=== PATIENT | male | born 1960 | race Caucasian/White ===

== ENCOUNTER 2018-12-18 22:01 | Observation (INO) ==
--- NOTE | 2018-12-18 22:06 | Emergency Department Note ---
Disposition Clinical Impression: Chest pain Qualifiers: Chest pain type: precordial pain Qualified Code(s): R07.2 - Precordial pain Disposition: Admitted As Inpatient Condition: Good Chest Pain HPI - General Chief Complaint: ED Chest Pain Stated Complaint: Stabbing chest pain (intermittent) onset 1 month Time Seen by Provider: 12/18/18 22:01 Source: patient Mode of arrival: EMS Limitations: no limitations Vital Signs Reviewed: Yes Nursing Notes Reviewed: Yes - History of Present Illness HPI Narrative: Patient has had very short-lived sharp stabbing left-sided chest pain with some associated pressure for the past month off and on. He had tired of it tonight so he came to the emergency department for evaluation by squad. Is not any worsening has been is not any better than it has been he also says the pain has been present for the past 4 years but worse in the last month. He was given baby aspirin and 1 nitroglycerin by the squad and his pain is gone. He denies any shortness of breath nausea vomiting or diaphoresis. Duration: intermittent Pain Location: substernal, left chest Quality: tightness Pain Radiation: none Improves with: nitroglycerin Worsens with: nothing Treatments prior to arrival chest pain: aspirin, nitroglycerin - Related Data Home Medications Medication Instructions Recorded Confirmed Alprazolam [Xanax] 1 mg PO BID 04/17/15 12/18/18 Aspirin 81 mg PO DAILY 04/17/15 12/18/18 Clopidogrel [Plavix] 75 mg PO DAILY 04/17/15 12/18/18 Metoprolol [Lopressor] 75 mg PO BID 04/17/15 12/18/18 Nitroglycerin [Nitrostat] 1 tab PO PRN PRN 06/13/17 12/18/18 ALPRAZolam [Xanax 1 MG Tablet] 1 mg PO BID 12/18/18 12/18/18 DULoxetine [Cymbalta] 30 mg PO DAILY 12/18/18 12/18/18 Diclofenac Sodium/Capsaicin 1 each TP TID 12/18/18 12/18/18 [Diclopak Kit] Fluconazole [Diflucan] 150 mg PO DAILY 12/18/18 12/18/18 Mupirocin [Bactroban Oint] 1 appl TP TID 12/18/18 12/18/18 Terbinafine [Lamisil At] 12 gm TP DAILY 12/18/18 12/18/18 Thiamine HCl [Vitamin B-1] 100 mg PO DAILY 12/18/18 12/18/18 Previous Rx's Medication Instructions Recorded HYDROcodone/Acet 5/325 mg [[place] 1 tab PO Q6H PRN #10 tab 05/16/17 5-325 mg] Allergies Allergy/AdvReac Type Severity Reaction Status Date / Time No Known Allergies Allergy Verified 12/18/18 22:45 All systems ED: reviewed and negative except as stated. Review of Systems: As Per HPI Constitutional: Denies: fever, chills, weakness, weight change Eyes: Denies: eye pain, eye discharge, vision change ENT ED: Denies: ear pain, throat pain, dental pain, hearing loss, epistaxis, congestion, dysphagia Cardiovascular: Reports: as per HPI, chest pain. Denies: palpitations, dyspnea on exertion, edema, syncope Respiratory: Denies: cough, dyspnea, wheezes, hemoptysis, stridor Gastrointestinal: Denies: abdominal pain, nausea, vomiting, diarrhea, constipation, hematemesis, melena, hematochezia Genitourinary: Denies: urgency, dysuria, frequency, hematuria Musculoskeletal: Denies: back pain, neck pain, arthralgia, myalgia Integumentary: Denies: rash, abrasion, lesions Neurological: Denies: headache, weakness, numbness, paresthesias, confusion, abnormal gait, vertigo Psychiatric: Denies: anxiety, depression, suicidal thoughts, homicidal thoughts, auditory hallucinations, visual hallucinations Endocrine: Denies: fatigue Hematological/Lymphatic: Denies: easy bleeding, easy bruising Allergic/Immunologic: Denies: facial swelling, urticaria Chest Pain PMH - Past Medical History Medical history: Reports: coronary artery disease, hypertension, myocardial infarction Surgical history: Reports: other Psychiatric history: Reports: anxiety - Social History Smoking Status: Current every day smoker Alcohol use: Reports: none Drug use: Reports: none Physical Exam - General Limitations: no limitations General appearance: alert, in no apparent distress - Head Head exam: atraumatic, normocephalic, normal inspection - Eye Eye exam: Present: normal appearance, PERRL, EOMI - ENT ENT exam: normal exam, normal oropharynx, mucous membranes moist - Neck Neck exam: Present: normal inspection, full ROM, trachea midline - Chest Chest inspection: Present: normal inspection, symmetric chest wall rise - Respiratory Respiratory exam: Present: normal lung sounds bilaterally - Cardiovascular Cardiovascular exam: Present: regular rate, normal rhythm, normal heart sounds - Abdominal Exam Abdominal exam: Present: soft, Non-Tender. Absent: tenderness, distention, guarding, rebound, rigidity - Extremities Exam Extremities exam: Present: normal inspection, full ROM. Absent: tenderness, pedal edema - Back Exam Back exam: Present: normal inspection, full ROM. Absent: tenderness - Neurological Exam Neurological exam: Present: alert, oriented X3 - Psychiatric Psychiatric exam: Present: normal affect, normal mood - Skin Skin exam: Present: warm, dry, intact Course Vital Signs Temperature 97.7 F 12/18/18 22:04 Pulse Rate 69 12/18/18 22:04 Respiratory Rate 16 12/18/18 22:04 Blood Pressure 141/79 12/18/18 22:04 O2 Sat by Pulse Oximetry 96 12/18/18 22:04 Temperature 97.8 F 12/19/18 10:35 Pulse Rate 64 12/19/18 10:35 Respiratory Rate 13 12/19/18 10:35 Blood Pressure 106/64 12/19/18 10:35 O2 Sat by Pulse Oximetry 98 12/19/18 13:26 Oxygen Delivery Oxygen Delivery Room Air Chest Pain - MDM Narrative Medical decision making narrative: I reviewed the patient's medication list - Lab Data Result diagrams: 12/19/18 06:30 12/19/18 06:30 Lab Results 12/18/18 12/18/18 12/18/18 Range/Units 22:10 22:10 22:10 WBC 6.3 (4.3-11.1) K/mcL RBC 4.72 (4.19-5.50) M/mcL Hgb 15.2 (12.9-16.9) g/dL Hct 43.9 (37.5-50.1) % MCV 93.0 (83.0-100.0) fL MCH 32.2 (28.0-33.3) pg MCHC 34.6 (31.6-35.5) g/dL RDW 11.8 (11.5-14.5) % Plt Count 138 L (140-400) K/mcL MPV 10.5 (9.4-12.4) fL Immature Gran % 0.2 (0-4) % Seg Neutrophils % 47.5 % Lymphocytes % 37.5 % Monocytes % 10.0 % Eosinophils % 3.5 % Basophils % 1.3 % Neutrophils # 3.0 (1.6-8.9) K/mcL Lymphocytes # 2.4 (0.6-4.6) K/mcL Monocytes # 0.6 (0.0-1.3) K/mcL Eosinophils # 0.2 (0.0-0.6) K/mcL Basophils # 0.1 (0.0-0.2) K/mcL PT 11.9 (9.4-12.1) Seconds INR 1.1 APTT 37.0 H (26.0-36.0) Seconds Sodium 136 (136-145) mEq/L Potassium 3.7 (3.5-5.1) mEq/L Chloride 103 (98-107) mEq/L Carbon Dioxide 26 (23-29) mEq/L BUN 18 (6-20) mg/dL Creatinine 1.06 (0.70-1.30) mg/dL Est GFR ( Amer) > 60 (> 60) Est GFR (Non-Af Amer) > 60 (> 60) BUN/Creatinine Ratio 17 (6-26) Glucose 94 (70-105) mg/dL Calculated Osmolality 284 (280-300) Calcium 9.3 (8.6-10.3) mg/dL Total Bilirubin 0.4 (0.3-1.0) mg/dL AST 17 (13-39) Units/L ALT 17 (7-52) Units/L Alkaline Phosphatase 57 (34-104) Units/L Troponin I < 0.03 (< 0.04) ng/mL Serum Total Protein 7.2 (6.4-8.9) g/dL Albumin 4.0 (3.5-5.7) g/dL Globulin 3.2 (2.4-3.5) g/dL Albumin/Globulin Ratio 1.3 (1.1-2.2) 12/19/18 Range/Units 00:10 WBC (4.3-11.1) K/mcL RBC (4.19-5.50) M/mcL Hgb (12.9-16.9) g/dL Hct (37.5-50.1) % MCV (83.0-100.0) fL MCH (28.0-33.3) pg MCHC (31.6-35.5) g/dL RDW (11.5-14.5) % Plt Count (140-400) K/mcL MPV (9.4-12.4) fL Immature Gran % (0-4) % Seg Neutrophils % % Lymphocytes % % Monocytes % % Eosinophils % % Basophils % % Neutrophils # (1.6-8.9) K/mcL Lymphocytes # (0.6-4.6) K/mcL Monocytes # (0.0-1.3) K/mcL Eosinophils # (0.0-0.6) K/mcL Basophils # (0.0-0.2) K/mcL PT (9.4-12.1) Seconds INR APTT (26.0-36.0) Seconds Sodium (136-145) mEq/L Potassium (3.5-5.1) mEq/L Chloride (98-107) mEq/L Carbon Dioxide (23-29) mEq/L BUN (6-20) mg/dL Creatinine (0.70-1.30) mg/dL Est GFR ( Amer) (> 60) Est GFR (Non-Af Amer) (> 60) BUN/Creatinine Ratio (6-26) Glucose (70-105) mg/dL Calculated Osmolality (280-300) Calcium (8.6-10.3) mg/dL Total Bilirubin (0.3-1.0) mg/dL AST (13-39) Units/L ALT (7-52) Units/L Alkaline Phosphatase (34-104) Units/L Troponin I < 0.03 (< 0.04) ng/mL Serum Total Protein (6.4-8.9) g/dL Albumin (3.5-5.7) g/dL Globulin (2.4-3.5) g/dL Albumin/Globulin Ratio (1.1-2.2) - EKG Data EKG attestation: Yes I reviewed and interpreted this EKG. EKG results narrative: EKG shows no sinus rhythm with a rate of 68 bpm VT interval is 173 ms. QRS duration 91 ms QT interval 381 QTc interval 406 ms R axis of 57 degrees no acute ischemic changes are noted.
[2018-12-18 22:17] LABS: Basophils # 0.1 K/mcL (0.0-0.2); Basophils % 1.3 %; Eosinophils # 0.2 K/mcL (0.0-0.6); Eosinophils % 3.5 %; Hematocrit 43.9 % (37.5-50.1); Hemoglobin 15.2 g/dL (12.9-16.9); Immature Granulocytes % 0.2 % (0-4); Lymphocytes # 2.4 K/mcL (0.6-4.6); Lymphocytes % 37.5 %; Mean Corpuscular HGB Conc 34.6 g/dL (31.6-35.5); Mean Corpuscular Hemoglobin 32.2 pg (28.0-33.3); Mean Platelet Volume 10.5 fL (9.4-12.4); Monocytes # 0.6 K/mcL (0.0-1.3); Platelet Count 138 K/mcL (140-400); Red Blood Count 4.72 M/mcL (4.19-5.50); Red Cell Distribution Width 11.8 % (11.5-14.5); Segmented Neutrophils % 47.5 %
[2018-12-18 22:25] LABS: INR 1.1; Prothrombin Time 11.9 Seconds (9.4-12.1)
[2018-12-18 22:37] LABS: Alanine Aminotransferase 17 Units/L (7-52); Albumin/Globulin Ratio 1.3 (1.1-2.2); Alkaline Phosphatase 57 Units/L (34-104); Aspartate Amino Transferase 17 Units/L (13-39); BUN/Creatinine Ratio 17 (6-26); Bilirubin,Total 0.4 mg/dL (0.3-1.0); Blood Urea Nitrogen 18 mg/dL (6-20); Calcium 9.3 mg/dL (8.6-10.3); Carbon Dioxide 26 mEq/L (23-29); Chloride 103 mEq/L (98-107); Globulin 3.2 g/dL (2.4-3.5); Glucose 94 mg/dL (70-105); Osmolality,Calculated 284 (280-300); Potassium 3.7 mEq/L (3.5-5.1); Sodium 136 mEq/L (136-145); Total Protein 7.2 g/dL (6.4-8.9); Troponin I < 0.03 ng/mL (< 0.04); eGFR For Non-African Americans > 60 (> 60)
[2018-12-19] MEDS ORDERED: ALPRAZolam 0.5 MG TABLET PO ONE (01:27)
[2018-12-19] MEDS ORDERED: Naloxone 0.4 MG/ML INJ IVP PRN (03:24)
[2018-12-19] MEDS ORDERED: Nitroglycerin 0.4 MG TAB.SUBL SL PRN (03:24)
[2018-12-19] MEDS ORDERED: *HR* HYDROcodone/Acet 5/325 mg TABLET PO PRN (03:24)
[2018-12-19 06:41] LABS: Hemoglobin 15.1 g/dL (12.9-16.9); Mean Corpuscular HGB Conc 34.3 g/dL (31.6-35.5); Mean Corpuscular Hemoglobin 32.2 pg (28.0-33.3); Mean Corpuscular Volume 93.8 fL (83.0-100.0); Mean Platelet Volume 10.3 fL (9.4-12.4); Platelet Count 137 K/mcL (140-400); Red Blood Count 4.69 M/mcL (4.19-5.50); Red Cell Distribution Width 12.1 % (11.5-14.5)
[2018-12-19 07:13] LABS: BUN/Creatinine Ratio 14 (6-26); Blood Urea Nitrogen 15 mg/dL (6-20); Calcium 9.2 mg/dL (8.6-10.3); Carbon Dioxide 30 mEq/L (23-29); Chloride 103 mEq/L (98-107); Glucose 101 mg/dL (70-105); Osmolality,Calculated 289 (280-300); Potassium 4.2 mEq/L (3.5-5.1); Sodium 139 mEq/L (136-145); eGFR For Non-African Americans > 60 (> 60)
[2018-12-19] MEDS ORDERED: DICLOFENAC SODIUM TP SCH (09:00)
[2018-12-19] MEDS ORDERED: ALPRAZolam 1 MG TABLET PO SCH (09:00)
[2018-12-19] MEDS ORDERED: CAPSAICIN TP SCH (09:00)
[2018-12-19] MEDS ORDERED: NON-FORMULARY MEDICATION 1 EACH EACH (Fluconazole [Diflucan] 150 MG) PO SCH (09:00)
[2018-12-19] MEDS ORDERED: Aspirin 81 MG TAB.CHEW PO SCH (09:00)
--- NOTE | 2018-12-19 10:35 | Electrocardiograph Report ---
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
[2018-12-19 10:36] VITALS: BP 106/64
--- NOTE | 2018-12-19 12:14 | Internal Med History&Physical ---
Date of Encounter: 12/19/18 Time of Encounter: 11:45 Assessment and Plan (1) Chest pain Current visit: Yes Status: Acute Doubt myocardial ischemia from history and physical. Repeat cardiac enzymes were ordered through emergency room. Qualifiers: Chest pain type: precordial pain Qualified Code(s): R07.2 - Precordial pain (2) ASHD (arteriosclerotic heart disease) Current visit: Yes Status: Chronic Status post NM 2009 with 8 stents. Doubt present chest pain is ischemia related. (3) Hypertension Current visit: Yes Status: Chronic Continue Lopressor and monitor blood pressure. Qualifiers: Hypertension type: essential hypertension Qualified Code(s): I10 - Essential (primary) hypertension (4) Anxiety Current visit: Yes Status: Chronic Continue Xanax (5) Tobacco use Current visit: Yes Status: Acute Room air oximetry will be checked on 6 minute walk prior to discharge. Encouraged him to discontinue smoking. Internal Medicine - H&P: HPI Chief complaint: Chest pain Admitted From: Emergency Dept Plans for Post Hospital Care: Home History of present illness: Mr. Crews is a 58 year old male who came to emergency room after attending his mother's earlier in the day stating he had some discomfort in his left chest. He describes it as a sharp fleeting shooting pain in his left chest that felt like "shock". He states it has been present intermittently for 5 years but he felt it was more sharp and occurring more frequently than usual. He was evaluated in emergency room and admitted to [facility] floor for ongoing care needs. Cardiovascular history is significant for hypertension. He checks blood pressures regularly at home and reports readings of approximately 132/75. He has known ASHD status post NM 2009 with a total of 8 stents. His most recent stent was placed at his last heart cath in 2012. He denies stress test since the stent was placed. 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 He denies heart failure DVT or pulmonary embolus. He does not get angina or anginal equivalents on exertion. He states he feels back to his baseline now and stable for discharge home. Past Med Surg Social Fam HX - Past Medical History Medical history: coronary artery disease, hypertension, myocardial infarction Additional medical history: stent x 7 Psychiatric history: anxiety - Past Surgical History Surgical History: other Additional surgical history: 8 Stents - Social History Smoking Status: Current every day smoker Packs per day: 1/2 Smokeless Tobacco Status: No Alcohol use: none Drug use: none Internal Medicine - H&P: Meds Alprazolam [Xanax] 1 mg PO BID 04/17/15 [History] Aspirin 81 mg PO DAILY 04/17/15 [History] Clopidogrel [Plavix] 75 mg PO DAILY 04/17/15 [History] Metoprolol [Lopressor] 75 mg PO BID 04/17/15 [History] HYDROcodone/Acet 5/325 mg [[place] 5-325 mg] 1 tab PO Q6H PRN #10 tab 05/16/17 [Rx] Nitroglycerin [Nitrostat] 1 tab PO PRN PRN 06/13/17 [History] ALPRAZolam [Xanax 1 MG Tablet] 1 mg PO BID 12/18/18 [History] DULoxetine [Cymbalta] 30 mg PO DAILY 12/18/18 [History] Diclofenac Sodium/Capsaicin [Diclopak Kit] 1 each TP TID 12/18/18 [History] Fluconazole [Diflucan] 150 mg PO DAILY 12/18/18 [History] Mupirocin [Bactroban Oint] 1 appl TP TID 12/18/18 [History] Terbinafine [Lamisil At] 12 gm TP DAILY 12/18/18 [History] Thiamine HCl [Vitamin B-1] 100 mg PO DAILY 12/18/18 [History] Allergy/AdvReac Type Severity Reaction Status Date / Time No Known Allergies Allergy Verified 12/18/18 22:45 All Systems PM: A 10-system review of systems was performed and is negative for pertinent findings except as documented above in the HPI. Review of systems: Gen.: He states his weight has increased approximately 7 pounds over the winter Cardiovascular: As per history of present illness Respiratory: He has smoked since age 21 up to 2 packs per day. He denies PFTs and does not use home oxygen. GI: Denies disorders of his liver gallbladder or exocrine pancreas : He denies hematuria dysuria or kidney stones Neurologic: He denies large distribution strokes or seizures. Endocrine: He denies diabetes thyroid disease or hyperlipidemia Hematology/oncology: He denies blood disorders cancers or anemia Psychiatric: He has anxiety but denies depression or other mental health diagnosis [place] skeletal: He has DJD but denies gout or other bone joint or muscle disorders. - Constitutional Vitals: Temp Pulse Resp BP Pulse Ox 97.8 F 64 13 106/64 96 12/19/18 10:35 12/19/18 10:35 12/19/18 10:35 12/19/18 10:35 12/19/18 10:35 Exam: Gen.: He is a well-developed well-nourished male sitting on the side of bed who appears in no acute distress HEENT: Head is atraumatic and normocephalic. Eyes: EOMI. There is no scleral icterus. Mouth: Mucosa is moist. Neck: Supple and nontender. There is no thyromegaly or adenopathy noted. Heart: Regular without murmurs gallops or ectopics Chest: He is tender in his left chest stating "that is the pain" on compression of the left chest and costosternal joints. Abdomen: Soft and nontender. No masses or guarding are noted. Extremities: There is no cyanosis edema or clubbing noted. Dorsalis pedis and p osterior tibial pulses are 1-2 over 2 palpable bilaterally. Neurologic: Mental status: He is talkative and a good historian. Cranial nerves: Smile is symmetric. Forehead wrinkles bilaterally. Tongue protrudes midline. EOMI. Motor: There is no pronator drift. Cerebellar: Finger to nose is intact bilaterally. Skin: Warm and dry Internal Med - H&P Results - Labs CBC & Chem 7: 12/19/18 06:30 12/19/18 06:30 Labs: Short CBC 12/18/18 12/19/18 Range/Units 22:10 06:30 WBC 6.3 6.4 (4.3-11.1) K/mcL Hgb 15.2 15.1 (12.9-16.9) g/dL Hct 43.9 44.0 (37.5-50.1) % Plt Count 138 L 137 L (140-400) K/mcL Neutrophils # 3.0 (1.6-8.9) K/mcL BMP 12/18/18 12/19/18 22:10 06:30 Sodium 136 139 Potassium 3.7 4.2 Chloride 103 103 Carbon Dioxide 26 30 H BUN 18 15 Creatinine 1.06 1.11 Glucose 94 101 Calcium 9.3 9.2 Cardiac Enzymes 12/18/18 12/19/18 12/19/18 Range/Units 22:10 00:10 06:30 Troponin I < 0.03 < 0.03 < 0.03 (< 0.04) ng/mL 12/19/18 Range/Units 11:27 Troponin I < 0.03 (< 0.04) ng/mL Liver Function 12/18/18 Range/Units 22:10 Total Bilirubin 0.4 (0.3-1.0) mg/dL AST 17 (13-39) Units/L ALT 17 (7-52) Units/L Alkaline Phosphatase 57 (34-104) Units/L Albumin 4.0 (3.5-5.7) g/dL - Impressions ITS Impressions Chest X-Ray 12/18/18 22:06 IMPRESSION: No acute cardiopulmonary disease. D/ / Abrahan Negrete MD / Abrahan Negrete MD Interpreting Provider: Abrahan Negrete MD
--- NOTE | 2018-12-19 12:23 | Discharge Summary ---
Orders not resulted at time of discharge: Pending orders 12/19/18 18:00 Troponin I Q6H Date of Encounter: 12/19/18 Time of Encounter: 11:45 - Discharge Diagnosis (1) Chest pain Priority: Primary Status: Acute Qualifiers: Chest pain type: precordial pain Qualified Code(s): R07.2 - Precordial pain (2) ASHD (arteriosclerotic heart disease) Priority: Secondary Status: Chronic (3) Hypertension Priority: Secondary Status: Chronic Qualifiers: Hypertension type: essential hypertension Qualified Code(s): I10 - Essential (primary) hypertension (4) Anxiety Priority: Secondary Status: Chronic (5) Tobacco use Priority: Secondary Status: Chronic Hospital course: Mr. Crews is a 58 year old male who came to emergency room after attending his mother's earlier in the day stating he had some discomfort in his left chest. He describes it as a sharp fleeting shooting pain in his left chest that felt like "shock". He states it has been present intermittently for 5 years but he felt it was more sharp and occurring more frequently than usual. He was evaluated in emergency room and admitted to [facility] for ongoing care needs. Initial orders were written by the emergency room physician. I saw him on December 19 and performed a history physical and discharge. Repeat cardiac enzymes showed no evidence of myocardial damage. When I saw him I felt the pain was most likely chest wall origin since it could be reproduced by chest compression. He felt stable for discharge home which I felt was reasonable. He will follow with his PCP Fina Chin CNP within 1 week. He will use OTC NSAIDs for 2 days to see if chest wall pain lessens. I encouraged him to discontinue smoking. Room air oximetry will be checked on 6 minute walk prior to discharge. - Time Spent with Patient Total time spent providing and/or coordinating discharge services: - Discharge Medications Prescriptions: Continue Clopidogrel [Plavix] 75 mg PO DAILY Aspirin 81 mg PO DAILY Alprazolam [Xanax] 1 mg PO BID Metoprolol [Lopressor] 75 mg PO BID HYDROcodone/Acet 5/325 mg [[place] 5-325 mg] 1 tab PO Q6H PRN #10 tab PRN Reason: Pain Nitroglycerin [Nitrostat] 1 tab PO PRN PRN PRN Reason: cp Mupirocin [Bactroban Oint] 1 appl TP TID Terbinafine [Lamisil At] 12 gm TP DAILY Fluconazole [Diflucan] 150 mg PO DAILY Diclofenac Sodium/Capsaicin [Diclopak Kit] 1 each TP TID DULoxetine [Cymbalta] 30 mg PO DAILY ALPRAZolam [Xanax 1 MG Tablet] 1 mg PO BID Thiamine HCl [Vitamin B-1] 100 mg PO DAILY Home Medications: Alprazolam [Xanax] 1 mg PO BID 04/17/15 [History] Aspirin 81 mg PO DAILY 04/17/15 [History] Clopidogrel [Plavix] 75 mg PO DAILY 04/17/15 [History] Metoprolol [Lopressor] 75 mg PO BID 04/17/15 [History] HYDROcodone/Acet 5/325 mg [[place] 5-325 mg] 1 tab PO Q6H PRN #10 tab 05/16/17 [Rx] Nitroglycerin [Nitrostat] 1 tab PO PRN PRN 06/13/17 [History] ALPRAZolam [Xanax 1 MG Tablet] 1 mg PO BID 12/18/18 [History] DULoxetine [Cymbalta] 30 mg PO DAILY 12/18/18 [History] Diclofenac Sodium/Capsaicin [Diclopak Kit] 1 each TP TID 12/18/18 [History] Fluconazole [Diflucan] 150 mg PO DAILY 12/18/18 [History] Mupirocin [Bactroban Oint] 1 appl TP TID 12/18/18 [History] Terbinafine [Lamisil At] 12 gm TP DAILY 12/18/18 [History] Thiamine HCl [Vitamin B-1] 100 mg PO DAILY 12/18/18 [History] Allergies/Adverse Reactions: Allergy/AdvReac Type Severity Reaction Status Date / Time No Known Allergies Allergy Verified 12/18/18 22:45 Date of admission: 12/19/18 03:02 Primary care physician: Fina Chin CNP - Constitutional Vitals: Temp Pulse Resp BP Pulse Ox 97.8 F 64 13 106/64 96 12/19/18 10:35 12/19/18 10:35 12/19/18 10:35 12/19/18 10:35 12/19/18 10:35 - Patient Status Disposition: Home, Self-Care Condition: Fair - Discharge Instructions Follow Up With: Fina Chin, JUDIT [Primary Care Provider] - 1 week - Diet and Activity Activity: resume usual activities as tolerated Diet: advance to your usual diet
== END 2018-12-19 13:31 | disposition home or self-care (01) ==
LOC: INPPIK 22:01 → EMEROOPIK 22:01 → INPPIK 12-19 03:25
PROVIDERS: ADMIT Internal Medicine; ATTEND Internal Medicine